=== PATIENT | female | born 1955 | race Caucasian/White ===

== ENCOUNTER 2023-11-29 10:53 | Outpatient (CLI) | payer MEDICARE, BC, SELFPAY ==
[2023-11-29 23:40] LABS: Chlamydia DNA Amplified* NOT DETECTED (No Detected); GC DNA Amplified* NOT DETECTED (No Detected)
== END 2023-11-29 10:54 | disposition home or self-care (01) ==
PROVIDERS: PCP Family Medicine; Visit Provider Family Medicine
DX: E78.5 Hyperlipidemia, unspecified (principal); I10 Essential (primary) hypertension; E04.9 Nontoxic goiter, unspecified; Z11.3 Encounter for screening for infections with a predominantly sexual mode of transmission
CPT/HCPCS: 80053; 80061; 82043; 82570; 84443; 86592; 86703; 86803; 87491; 87591

== ENCOUNTER 2023-12-31 12:40 | Outpatient (CLI) | payer MEDICARE, BC, SELFPAY ==
--- NOTE | 2023-12-31 13:00 | US_ITS ---
Patient: DUDLEY GUTHRIE Facility:?[facility] R[facility] Patient ID:?[id number] Site Patient ID:?[id number]. Site :?1955 Study:?US-Abdomen AAA SCREENING-12/31/2023 1:44:17 PM Ordering Physician:?NASRA LEE Final Report: ULTRASOUND ABDOMINAL AORTA INDICATION: Personal history of nicotine dependence, abdominal aortic aneurysm screening. COMPARISON: None. TECHNIQUE: The abdominal aorta and iliac arteries were examined with gardiner-scale ultrasound, color flow and Doppler spectral analysis. Bypass grafts and stents may be evaluated per exam specific protocol. Vessel size, peak systolic velocity (PSV) and velocity ratios if applicable, were obtained and documented at sites per exam specific protocol. FINDINGS: Scattered atherosclerotic disease is seen throughout the abdominal aorta. The abdominal aorta and bilateral iliac arteries are otherwise normal in caliber without evidence of aneurysm. Entire aorta visualized: Yes. Proximal AO: 2.5 cm (AP) 2.6 cm (width). Mid AO: 2.3 cm (AP) 2.3 cm (width). Distal AO: 1.8 cm (AP) 1.8 cm (width). Right ERIC: 1.2 cm (AP) 1.4 cm (width). Left ERIC: 1.3 cm (AP) 1.5 cm (width). IMPRESSION: No sonographic evidence of abdominal aortic aneurysm. Murray Montes M.D. Vascular and Interventional Radiology [email or web address] FRANC/braden D& Transcribed: 6:42 p.m. HEATHER/Dictated by: Murray Montes MD @ 12/31/2023 6:06:00 PM Signed by:?Murray Montes MD @12/31/2023 7:09:35 PM (Electronic Signature)
--- NOTE | 2023-12-31 14:00 | US_ITS ---
Patient: DUDLEY GUTHRIE Facility:?[facility] Patient ID:?[id number] Site Patient ID:?[id number]. Site :?[id number] Study:?US-Thyroid -12/31/2023 1:42:58 PM Ordering Physician:?NASRA LEE Final Report: CLINICAL HISTORY: Nontoxic goiter TECHNIQUE: Avendano-scale and color Doppler images were acquired of the thyroid gland. FINDINGS: The right thyroid lobe measures 7.6 x 4 x 3.8 centimeters left thyroid lobe measures 1.6 x 5.2 x 4.4 centimeters extremely heterogeneous echotexture to the thyroid gland bilaterally mild increased vascularity. No discrete definable nodule seen. Findings could be seen with thyroiditis. IMPRESSION: Heterogeneous enlarged thyroid gland mild increased vascularity could be seen with thyroiditis. Dictated by Simi Sanchez MD @ 01/02/2024 10:20:53 AM Signed by:?Simi Sanchez MD @01/02/2024 10:20:53 AM (Electronic Signature)
== END 2023-12-31 12:41 | disposition home or self-care (01) ==
LOC: US 12:41
PROVIDERS: PCP Family Medicine; Visit Provider Family Medicine
DX: Z13.6 Encounter for screening for cardiovascular disorders (principal); Z87.891 Personal history of nicotine dependence; E04.9 Nontoxic goiter, unspecified
CPT/HCPCS: 76536; 76706

== ENCOUNTER 2024-02-23 14:09 | Outpatient (CLI) | payer MEDICARE, BC, SELFPAY ==
--- NOTE | 2024-02-23 14:30 | CRLHL7_ITS ---
For Patients: As a result of the Century Cures Act, medical imaging exams and procedure reports are released immediately into your electronic medical record. You may view this report before your referring provider. If you have questions, please contact your health care provider. DXA BONE MINERAL DENSITY STUDY Reason for exam: Screening. Current height (in): 66. Weight (lb): 191. Menopause age: 51. Ethnicity: White. 1. Have you had a previous hip or vertebral fracture? No. 2. Have you had any fractures during your adult life which did not result from significant trauma (e.g., auto accident)? No. 3. Did either of your parents have a hip fracture? No. 4. Do you smoke? No. 5. Have you ever taken Glucocorticoids? No. 6. Do you have rheumatoid arthritis? No. 7. Do you have secondary osteoporosis? No. 8. Do you drink 3 or more alcoholic drinks per day? No. 9. Are you being treated for osteoporosis? No. 10. Have you ever taken any of the following medications: Actonel, Evista, Fosamax, Miacalcin, Reclast, Boniva, Forteo, HRT (i.e. estrogen/hormone therapy), Protelos, Prolia, Vitamin D, Calcium, other ??? please specify. ANSWER: Yes, vitamin D and calcium. 11. Do you have any of the following medical conditions: Anorexia or bulimia, asthma or emphysema, end stage renal disease, hyperparathyroidism, any seizure disorders, cancer, inflammatory bowel diseases, hysterectomy, other ??? please specify. ANSWER: Yes, hysterectomy. 12. What was your maximum height (inches)? 66.5. 13. Do you perform weight bearing exercise regularly? No. 14. Do you regularly consume dairy products? No. 15. Do you drink caffeinated beverages? Yes. 16. At what age did your period start? 12. 17. Are you premenopausal? No. 18. How many full term pregnancies have you had? 0. 19. Have you ever missed your period for more than 6 months in a row (not including or menopause)? No. TECHNIQUE: Bone mineral density study was performed using the [employer]. FINDINGS: The results of the study expressed as bone mineral density (BMD) are as follows: Lumbar spine L1 to L4: BMD: 0.774 g/cm2. T-score: -2.5. Z-score: -0.3. Neck Left: BMD: 0.619 g/cm2. T-score: -2.1. Z-score: -0.2. Right: BMD: 0.624 g/cm2. T-score: -2.0. Z-score: -0.2. Total Left: BMD: 0.772 g/cm2. T-score: -1.4. Z-score: 0.1. Right: BMD: 0.782 g/cm2. T-score: -1.3. Z-score: 0.2. IMPRESSION: Osteoporosis. *Comparison exams done prior to 02/2020 were performed on different unit, [employer]. Michael Sanchez M.D. Body/Diagnostic Radiologist [email or web address] RJP/sp SP/Dictated by: Michael Sanchez MD @ 02/24/2024 3:11:00 PM (Electronically Signed)
--- NOTE | 2024-02-23 15:00 | CRLHL7_ITS ---
For Patients: As a result of the Century Cures Act, medical imaging exams and procedure reports are released immediately into your electronic medical record. You may view this report before your referring provider. If you have questions, please contact your health care provider. BILATERAL SCREENING MAMMOGRAM WITH COMPUTER-AIDED DETECTION AND TOMOSYNTHESIS TECHNIQUE: CC and MLO views were obtained. These mammographic images have been obtained using full-field digital technique. These mammographic images were interpreted with the benefit of computer-aided detection. Breast Tomosynthesis was used in this interpretation. COMPARISON FILM: No comparison available. FINDINGS: There are scattered areas of fibroglandular density. IMPRESSION: There is no radiographic evidence for malignancy. ASSESSMENT: BI-RADS Category 1: Negative RECOMMENDATION: Routine screening mammogram in 1 year. A lay language report of this examination will be provided to the patient. David Mejia M.D. Diagnostic Radiologist [email or web address] SP/Dictated by: David Mejia MD @ 03/03/2024 7:59:00 AM (Electronically Signed)
== END 2024-02-23 14:10 | disposition home or self-care (01) ==
LOC: RAD 14:11
PROVIDERS: PCP Family Medicine; Visit Provider Family Medicine
DX: Z12.31 Encounter for screening mammogram for malignant neoplasm of breast (principal); Z13.820 Encounter for screening for osteoporosis; M81.0 Age-related osteoporosis without current pathological fracture; Z78.0 Asymptomatic menopausal state
CPT/HCPCS: 77063; 77067; 77080

== ENCOUNTER 2024-07-11 10:52 | Outpatient (CLI) | payer MEDICARE, BC, SELFPAY ==
--- NOTE | 2024-07-11 11:00 | CRLHL7_ITS ---
For Patients: As a result of the Century Cures Act, medical imaging exams and procedure reports are released immediately into your electronic medical record. You may view this report before your referring provider. If you have questions, please contact your health care provider. INDICATION: Lung cancer screening. TECHNIQUE: Noncontrast CT images of the chest. COMPARISON: None. FINDINGS: No focal consolidation, pleural effusion, or pneumothorax. Few solid nodules within the right upper lobe measuring up to 4 mm (series 3, image 20). Mild scarring/atelectasis right lung base. Markedly enlarged thyroid gland demonstrating numerous coarse calcifications. The heart size is normal. No pericardial effusion. Coronary atherosclerotic calcifications. Borderline aneurysmal dilatation of ascending thoracic aorta measuring 3.9 cm. No mediastinal or hilar lymphadenopathy. Very small hiatal hernia. Exaggerated thoracic kyphosis. Multilevel thoracic spondylosis. No aggressive osseous lesions. IMPRESSION: 1. Few small pulmonary nodules. Lung rads category 2, benign. Continue annual screening with low-dose chest CT in 12 months. 2. Markedly enlarged thyroid gland demonstrating numerous coarse calcifications. Thyroid ultrasound is recommended for further evaluation. Please note that all CT scans at this facility use dose modulation, iterative reconstruction, and/or weight-based dosing when appropriate to reduce radiation dose to as low as reasonably achievable. Dictated by Gregor Zamora MD @ 07/11/2024 3:35:22 PM (Electronically Signed)
== END 2024-07-11 10:53 | disposition home or self-care (01) ==
LOC: CT 10:57
PROVIDERS: PCP Family Medicine; Visit Provider Family Medicine
DX: Z12.2 Encounter for screening for malignant neoplasm of respiratory organs (principal); R91.8 Other nonspecific abnormal finding of lung field; E04.9 Nontoxic goiter, unspecified; K44.9 Diaphragmatic hernia without obstruction or gangrene; Z87.891 Personal history of nicotine dependence
CPT/HCPCS: 71271

== ENCOUNTER 2024-07-18 11:06 | Outpatient (CLI) | payer MEDICARE, BC, SELFPAY ==
--- NOTE | 2024-07-18 11:15 | CRLHL7_ITS ---
For Patients: As a result of the Century Cures Act, medical imaging exams and procedure reports are released immediately into your electronic medical record. You may view this report before your referring provider. If you have questions, please contact your health care provider. INDICATION: Nontoxic goiter. COMPARISON: None available. FINDINGS: Ultrasound examination of the thyroid gland was performed with a high-resolution linear transducer. Both lobes of the thyroid are enlarged, [id number]. The right lobe measures 6.3 x 3.8 x 4.0 cm and the left lobe measures 9.5 x 5.5 x 3.8 cm. Both lobes of the thyroid are heterogeneous in echogenicity without distinct nodules. There is increased color Doppler flow throughout both lobes. The findings are that of a multinodular goiter. IMPRESSION: 1. Prominent enlargement of the left lobe of the thyroid and moderate enlargement of the right lobe of the thyroid. 2. Heterogeneous echogenicity throughout both lobes without distinct nodule, with increased color Doppler flow bilaterally. Findings consistent with a multinodular goiter. Dictated by Benjy Mendoza MD @ 07/18/2024 10:45:23 PM (Electronically Signed)
== END 2024-07-18 11:07 | disposition home or self-care (01) ==
LOC: US 11:07
PROVIDERS: PCP Family Medicine; Visit Provider Family Medicine
DX: E04.9 Nontoxic goiter, unspecified (principal)
CPT/HCPCS: 76536

== ENCOUNTER 2024-11-30 13:29 | Outpatient (CLI) | payer MEDICARE, BC, SELFPAY | END 2024-11-30 13:30 | disposition home or self-care (01) | PROVIDERS: PCP Family Medicine; Visit Provider Family Medicine | DX: E78.5 Hyperlipidemia, unspecified (principal); I10 Essential (primary) hypertension | CPT/HCPCS: 80053; 80061; 82043; 82570 ==

== ENCOUNTER 2025-07-26 09:51 | Outpatient (CLI) | payer MEDICARE, BC, SELFPAY ==
--- NOTE | 2025-07-26 10:15 | CRLHL7_ITS ---
For Patients: As a result of the Century Cures Act, medical imaging exams and procedure reports are released immediately into your electronic medical record. You may view this report before your referring provider. If you have questions, please contact your health care provider. INDICATION: Nontoxic multinodular goiter COMPARISON: 07/18/2024, 12/31/2023 TECHNIQUE: Avendano scale and color Doppler images were acquired of the thyroid gland. FINDINGS: The thyroid is enlarged and diffusely heterogeneous without discernible nodule. The right lobe measures 6.5 x 4.3 x 3.8 cm and the left lobe measures 7.2 x 3.9 x 5.0 cm in size. The color Doppler images demonstrate increased vascularity. There is no evidence of cervical lymphadenopathy or parathyroid mass. IMPRESSION: Diffusely enlarged, heterogeneous and hypervascular thyroid, not significantly changed. Dictated by David Mejia MD @ 07/26/2025 10:56:12 AM (Electronically Signed)
--- NOTE | 2025-07-26 11:00 | CRLHL7_ITS ---
For Patients: As a result of the Century Cures Act, medical imaging exams and procedure reports are released immediately into your electronic medical record. You may view this report before your referring provider. If you have questions, please contact your health care provider. INDICATION: Lung cancer screening. History of smoking. High risk patient with greater than 45 pack-year smoking history. TECHNIQUE: Low-dose lung cancer screening non-contrast CT chest. Dose reduction techniques were used. COMPARISON: 07/11/2024 FINDINGS: NODULES: 2 millimeter calcified granuloma right lower lobe adjacent to the fissure is unchanged, . Small subpleural nodules right upper lobe are similar measuring 3 millimeters or less, 12/09 and 11/26. LUNGS AND PLEURA: No acute findings. MEDIASTINUM: Enlarged thyroid gland with multiple dystrophic calcifications not significantly changed. No enlarged intrathoracic lymph nodes. CORONARY ARTERY CALCIFICATION: Mild. LIMITED UPPER ABDOMEN: Unremarkable. MUSCULOSKELETAL: No fracture. IMPRESSION: Negative for lung cancer screening purposes. LUNG-RADS CATEGORY: 2: Benign. RADIOLOGIST RECOMMENDATION: Continue annual screening, if eligible, with low-dose CT chest in 12 months. Please note that all CT scans at this facility use dose modulation, iterative reconstruction, and/or weight-based dosing when appropriate to reduce radiation dose to as low as reasonably achievable. Dictated by David Mejia MD @ 07/26/2025 11:12:32 AM (Electronically Signed)
== END 2025-07-26 09:52 | disposition home or self-care (01) ==
PROVIDERS: PCP Family Medicine; Referring Provider Internal Medicine; Visit Provider Family Medicine
DX: Z12.2 Encounter for screening for malignant neoplasm of respiratory organs (principal); Z87.891 Personal history of nicotine dependence; E04.2 Nontoxic multinodular goiter
CPT/HCPCS: 71271; 76536